=== PATIENT | female | born 1955 | race Caucasian/White ===

== ENCOUNTER 2018-09-08 05:46 | Outpatient (CLI) | payer BC ==
[~2018-09-08] VITALS: Ht 167.6 cm; Wt 90.7 kg
[2018-09-08] MEDS ORDERED: LORA10TA76 PO (16:32)
[2018-09-08] MEDS ORDERED: SIMV20TA3 PO (16:32)
== END 2018-09-08 16:41 | disposition home or self-care (01) ==
LOC: PREOP 05:46
PROVIDERS: ATTEND Obstetrics & Gynecology
DX: Z01.818 Encounter for other preprocedural examination (principal)

== ENCOUNTER 2018-10-09 08:17 | Outpatient (CLI) | payer OTHER ==
[~2018-10-09] VITALS: Ht 167.6 cm; Wt 90.7 kg
[~2018-10-09 08:17] MED LIST: LORA10TA76 PO; SIMV20TA3 PO
[2018-10-14] MEDS ORDERED: IBUP-1773 PO (02:52)
[2018-10-14] MEDS ORDERED: ACET-77 PO (02:52)
[2018-10-14] MEDS ORDERED: OXC5T PO (02:52)
[2018-10-14] MEDS ORDERED: DOCU-143 PO (08:48)
== END 2018-10-09 09:09 | disposition home or self-care (01) ==
LOC: PREOP 08:17
PROVIDERS: ATTEND Obstetrics & Gynecology
DX: Z01.818 Encounter for other preprocedural examination (principal)

== ENCOUNTER 2018-10-13 05:59 | Day surgery (SDC) | payer BC, OTHER ==
[2018-10-13] VITALS (13 sets, daily range): BP systolic 103–143; BP diastolic 63–88
[~2018-10-13] VITALS: Ht 167.6 cm; Wt 90.7 kg
[2018-10-13 06:43] LABS: BASOPHILS % (AUTO) 1 % (0-10); EOSINOPHILS # (AUTO) 0.3 10^3/uL (0.0-0.3); EOSINOPHILS % (AUTO) 4 % (0-10); HEMATOCRIT 41 % (35-52); LYMPHOCYTES # (AUTO) 2.3 X 10^3 (1.0-4.0); LYMPHOCYTES % (AUTO) 31 % (12-44); MEAN CORPUSCULAR HEMOGLOBIN 31 PG (25-34); MEAN CORPUSCULAR HGB CONC 35 G/DL (32-36); MEAN CORPUSCULAR VOLUME 91 FL (80-99); MEAN PLATELET VOLUME 10.1 FL (7.4-10.4); MONOCYTES # (AUTO) 0.7 X 10^3 (0.0-1.0); MONOCYTES % (AUTO) 9 % (0-12); NEUTROPHILS # (AUTO) 4.1 X 10^3 (1.8-7.8); NEUTROPHILS % (AUTO) 56 % (42-75); PLATELET COUNT 205 10^3/uL (130-400); RED CELL DISTRIBUTION WIDTH 13.5 % (10.0-14.5); WHITE BLOOD COUNT 7.4 10^3/uL (4.3-11.0)
--- NOTE | 2018-10-13 06:43 | History & Physical-Surgical ---
HPO-Surgical History of Present Illness Chief Complaint: Incomplete genital prolapse/ cystocele/rectocele Stress incontinenct Complains of vaginal pressues, stress incontinence with cough, sneeze and movement. Had two vaginal deliveries. hysterectomy in 1994. Due to Uterine fibroids. Dr. Page. Did a TVH. (age 37). Told her she would have a lot of scar tissue in about 30 years She had a tumor removed at age 27. Thought it was a dermoid. But ended up being next to the ovary. Was not attached to the muscle. Told her it had hair and teeth. Did that through a midline incision. I have had to reschedule her surgery twice due to personal reasons. Diagnosis/Surgical Indication: genital prolapse, cystocele, rectocele, DEBBIE Procedure: A&P repair, solyx sling Date of Surgery: October 13, 2018 Weight (Pounds): 200 Weight (Ounces): 0.0 Height (Feet): 5 Height (Inches): 6.00 Allergies and Home Medications Allergies Coded Allergies: No Known Drug Allergies (Unverified , 09/08/18) Home Medications Loratadine 10 Mg Tablet, 10 MG PO HS, (Reported) Simvastatin 20 Mg Tablet, 20 MG PO HS, (Reported) Patient Home Medication List Home Medication List Reviewed: Yes Past Cyufbgm-Ocqvbv-Ahmwym Hx Patient Social History Number of Children: 2 Number of living children: 2 Alcohol Use: Denies Use Smoking Status: Never a Smoker Recent Foreign Travel: No Contact w/other who traveled: No Recent Hopitalizations: No Seasonal Allergies Seasonal Allergies: Yes Surgeries Yes (OVARIAN CYSTECTOMY, KNEE SCOPE X2) Hysterectomy, Oophorectomy Respiratory No Cardiovascular Yes High Cholesterol Neurological No Genitourinary Yes Gastrointestinal No Musculoskeletal No Endocrine History of Endocrine Disorders: No HEENT History of HEENT Disorders: No Cancer No Psychosocial History of Psychiatric Problem: No Integumentary History of Skin or Integumenta: No Blood Transfusions History of Blood Disorders: No Family Medical History Significant Family History: No Pertinent Family Hx Family Hx: Diabetes mellitus G8 BROTHER Hypertension 19 MOTHER Myocardial infarction 19 FATHER Respiratory disorder 19 MOTHER Exam Vital Signs Capillary Refill : General Appearance: Alert Respiratory: Clear to Auscultation Cardiovascular: Regular Rate, Normal S1, Normal S2 Abdominal: Normal Bowel Sounds, Other (cystocele, rectocele, > 45 degree rotation of the urethra) Assessment/Plan Assessment and Plan 1. Incomplete genital prolapse 2. Cystocele/rectocele 3. Stress incontinence Plan - anterior posterior colporrhaphy, Solyx pubovaginal sling Discussed risks of surgery including Risks of bleeding, infection, injury to bowel, bladder and ureter, risks of anesthesia, risk of blood clots, perisurgical and postsurgical. Consents have been signed Prophylactic antibiotics and SCDs will be used. Admission Diagnosis Admission Status: Observation JOCELINE ALBA DO October 13, 2018 06:43
[2018-10-13] MEDS ORDERED: metroNIDAZOLE 500MG/100ML IVPB 100 ML IV ONE (06:45)
[2018-10-13] MEDS ORDERED: ceFAZolin INJECTION 1,000 MG in WATER (STERILE) FOR INJECTION 10 ML IV ONE (06:45)
[2018-10-13] MEDS: LACTATED RINGERS 1,000 ML IV PRN ×2 (06:56→08:23)
[2018-10-13] MEDS ORDERED: fentaNYL INJECTION 100 MCG/2 ML AMP ONE ×2 (07:09→08:51)
[2018-10-13] MEDS ORDERED: MIDAZOLAM 2 MG/2 ML (VERSED) VIAL ONE (07:10)
[2018-10-13] MEDS ORDERED: ceFAZolin INJECTION 1,000 MG ONE (07:11)
[2018-10-13] MEDS ORDERED: metroNIDAZOLE 500MG/100ML IVPB 100 ML ONE (07:11)
[2018-10-13] MEDS ORDERED: VASOPRESSIN INJECTION 20 UNIT/ML VIAL ONE (07:20)
[2018-10-13] MEDS ORDERED: NS (IVPB) 100 ML ONE (07:20)
[2018-10-13] MEDS ORDERED: ESTRADIOL VAGINAL CREAM 42.5 GM (ESTRACE) VG ONE (07:20)
[2018-10-13 07:43] LABS: BILIRUBIN,URINE NEGATIVE (NEGATIVE); CLARITY,URINE CLEAR; COLOR,URINE YELLOW; GLUCOSE, URINE (UA) NEGATIVE (NEGATIVE); KETONES,URINE NEGATIVE (NEGATIVE); LEUKOCYTE ESTERASE ,URINE NEGATIVE (NEGATIVE); NITRITE,URINE NEGATIVE (NEGATIVE); PH,URINE 6.5 (5-9); PROTEIN,URINE NEGATIVE (NEGATIVE); UROBILINOGEN,URINE NORMAL (NORMAL)
[2018-10-13 07:53] LABS: BACTERIA,URINE NEGATIVE /HPF; WBC,URINE RARE /HPF
[2018-10-13] MEDS ORDERED: DEXAMETHASONE 10 MG/ML (DECADRON) 1 ML VIAL ONE (08:33)
[2018-10-13] MEDS ORDERED: KETOROLAC 30 MG/ML VIAL ONE (08:33)
[2018-10-13] MEDS ORDERED: ONDANSETRON 4 MG/2 ML (SDV) Z0FRAN ONE (08:33)
[2018-10-13] MEDS ORDERED: proPOfol 200 MG/20 ML (DIPRIVAN) VIAL IV ONE (08:33)
[2018-10-13] MEDS ORDERED: SEVOFLURANE (ULTANE) 15 ML INHAL SOLN ONE ×3 (08:33→09:51)
[2018-10-13] MEDS ORDERED: LIDOCAINE PF 2% 5 ML (XYLOCAINE) VIAL ONE (08:34)
[2018-10-13] MEDS: KETOROLAC 30 MG/ML VIAL IVP SCH ×3 (09:00→20:25)
--- NOTE | 2018-10-13 09:38 | Operative Report ---
Operative Report Date of Procedure/Surgery October 13, 2018 Surgeon (s) JOCELINE ALBA DO Senior Bi Architect (s): NA Post-Operative Diagnosis incomplete prolapse/ cystocele/rectocele/stress incontinence Procedure Performed Anterior posterior repair, Solyx pubovaginal sling Description of Procedure Anesthesia Type: General Estimated blood loss (mL): 50 Specimen(s) collected/removed none Description of the Procedure With informed consent the patient was taken to the operating room where general anesthesia was found to be adequate. She was prepped and draped in the usual sterile fashion in the dorsolithotomy position. A Larsen catheter was placed in the bladder. A speculum was placed in the vagina and a LoneStar retractor was placed. The perineum was grasped on either side of the perineum with Wilma clamps. The posterior vagina was injected with diluted vasopressin. I then made a midline incision in the perineum and then undermined the posterior vaginal epithelium. This was complicated by scarring of the perineum from delivery lacerations and repaid. I then dissected the posterior vaginal epithelium off of the pubovaginal fascia laterally exposing the posterior defect up to the vaginal cuff. I then repaired the large posterior defect with interrupted 2-0 Vicryl mattress type sutures in two layers, reducing the defect. I then cut the excess vaginal epithelium and then closed the posterior vaginal laceration with 2-0 vicryl in a running fashion. I then made a pyramidal incision in the perineum and closed this defect in standard fashion. Now attention was turned to the anterior vaginal wall. There was a smaller anterior defect. The anterior vaginal epithelium was injected with dilute vasopressin and an Allis was clamped in the midline and then a midline incision was made. I then dissected the anterior vaginal epithelium off of the vesicovaginal fascia laterally to expose the midline defect. I then repaired this defect with interrupted mattress type sutures with 2-0 Vicryl reducing the defect. I now cut excess vaginal epithelium and closed the defect with 2-0 Vicryl. Lastly, I did the Solyx sling. She still had a urethrocele and > 50 degree of rotation with Cred. I grasp the vaginal epithelium with an Allis and then made a 1 cm incision approximately 1.5 cm from the urethral meatus. I dissected the periurethral space laterally. I then placed each arm of the the sling in standard fashion. Once proper placement was ensured and the sling was laying in the proper placement in the midurethra. The catheter was removed and then a cystoscopy was done. There was no vesicular pathology and no injury. I then filled the bladder with cystoscopy fluid and with Cred maneuver there was no leakage. The catheter was replaced and the incision was placed with 4-0 Monocryl in running fashion. The instruments and the LoneStar was removed. The catheter was replaced in the bladder. The vagina was now packed with vaginal packing and Estrace cream. The patient was awakened and take to recovery in stable condition. Sponge, lap, needle and instrument counts were correct times two. Findings of the Procedure 2-3+ rectocele, scarred perineum, 1+ high cystocele, > 45 degree rotation of the urethra, minimal leak with Cred Allergies and Home Medications Allergies Coded Allergies: No Known Drug Allergies (Unverified , 09/08/18) Home Medications Acetaminophen 500 Mg Tablet, 1,000 MG PO Q6H PRN for PAIN-MILD Prescribed by: JOCELINE ALBA on 10/14/18251 Docusate Sodium 100 Mg Capsule, 100 MG PO DAILY Prescribed by: JOCELINE ALBA on 10/14/18 0848 Ibuprofen 600 Mg Tablet, 600 MG PO Q6H PRN for PAIN-MILD Prescribed by: JOCELINE ALBA on 10/14/18 025 Loratadine 10 Mg Tablet, 10 MG PO HS, (Reported) Oxycodone Hcl 5 Mg Tab, 5 MG PO Q6H PRN for PAIN-SEVERE Prescribed by: JOCELINE ALBA on 10/14/18 025 Simvastatin 20 Mg Tablet, 20 MG PO HS, (Reported) Patient Home Medication List Home Medication List Reviewed: JOCELINE Albert DO October 13, 2018 09:37
[2018-10-13] MEDS ORDERED: ACETAMINOPHEN 500 MG TAB (TYLENOL) PO PRN (10:00)
[2018-10-13] MEDS ORDERED: morphine INJ 5 MG/ML 1 ML VIAL IV PRN (10:00)
[2018-10-13] MEDS ORDERED: ONDANSETRON 4 MG/2 ML (SDV) Z0FRAN IVP PRN (10:00)
--- NOTE | 2018-10-13 10:20 | Anesthesia-General Post-Op ---
General Patient Condition Mental Status/LOC: Same as Preop Cardiovascular: Satisfactory Nausea/Vomiting: Absent Respiratory: Satisfactory Pain: Controlled Complications: Absent Post Op Complications Complications None Follow Up Care/Instructions Patient Instructions None needed. Anesthesia/Patient Condition Patient Condition Patient is doing well, no complaints, stable vital signs, no apparent adverse anesthesia problems. No complications reported per nursing. D/C home per [facility] [place] Criteria: Yes EDWAR HEBERT CRNA October 13, 2018 10:20
--- NOTE | 2018-10-13 10:30 | NUR ---
Received pt from [facility] via bed. Received report form Kanika Sherwood RN. Pt alert and oriented. Skin warm and dry. Color pale pink. at bedside. O2 mask on at 3l/m for sats of 90% when on room air as reported via Kanika Ortega RN. Breath sounds clear and equal bilat. Larsen to dependent drainage. Clear pink urine. Larsen secure to lt thigh. SCD's on bilat. Bed rails up x2. Call light within reach. No s/s of distress. no concerns expressed via pt.
[2018-10-13] MEDS: D5 LR IV SOLUTION 1,000 ML IV SCH ×2 (11:15→18:31)
[2018-10-13] MEDS ORDERED: morphine INJ 10 MG/ML 1ML (SYR OR VIAL) IV PRN (11:45)
--- NOTE | 2018-10-13 13:45 | NUR ---
Pt alert and oriented. Color pink. Resp unlabored. Oxygen mask dcd per patient.
--- NOTE | 2018-10-13 14:20 | NUR ---
Checked o2 sat on room air. 98%. No concerns voiced by pt. No s/s distressed.
[2018-10-14 00:40] VITALS: BP 102/63
[2018-10-14] MEDS: D5 LR IV SOLUTION 1,000 ML IV SCH (02:28)
[2018-10-14] MEDS ORDERED: OXC5T PO (02:52)
[2018-10-14] MEDS ORDERED: IBUP-1773 PO (02:52)
[2018-10-14] MEDS ORDERED: ACET-77 PO (02:52)
--- NOTE | 2018-10-14 02:53 | Discharge Inst-Women's Service ---
Discharge Inst-Women's Serv Depart Medication/Instructions New, Converted or Re-Newed RX: Other Final Diagnosis incomplete vaginal prolapse rectocele stress incontinence Consults/Follow Up Additional Follow Up: Yes (1-2 week and 6 weeks with Artie) Activity Activity: Activity as Tolerated Driving Instructions: No Driving for 1 Week NO SMOKING: NO SMOKING Nothing Inside Vagina: No Douching, No [place], No Tampons Diet Discharge Diet: No Restrictions Symptoms to Report to : Bleeding Excessive, Pain Increased, Constipation(Persistant), Fever Over 101 Degrees F, Urination Difficulty, Vaginal Bleeding Increase, Cramps in Feet or Legs, Vaginal Discharge Foul For Any Problems or Questions: Contact Your Physician JOCELINE ALBA DO October 14, 2018 02:53
[2018-10-14] MEDS ORDERED: BENZOCAINE/MENTHOL (DERMOPLAST) 56 ML CAN TP PRN (03:00)
[2018-10-14 03:33] VITALS: BP 100/63
[2018-10-14] MEDS: KETOROLAC 30 MG/ML VIAL IVP SCH (03:33)
--- NOTE | 2018-10-14 08:30 | NUR ---
Dr. Alva here to see pt. D/C orders rec'd.
[2018-10-14] MEDS ORDERED: DOCU-143 PO (08:48)
[2018-10-14] MEDS ORDERED: DOCUSATE SODIUM 100 MG (COLACE) CAP PO SCH (09:00)
[2018-10-14 09:03] VITALS: BP 126/64
--- NOTE | 2018-10-14 09:55 | NUR ---
discharge instructions explained to pt with copy provided to pt along with narcotic script and Estrace cream. pt notified of follow up appt and other scripts electronically submitted to [facility]. Pt verbalizes understanding of teaching, denies questions or concerns at this time. Extra pads, underwear, bath wipes provided per pt request.
--- NOTE | 2018-10-14 10:05 | NUR ---
Pt taken off unit via wheelchair accompanied by S.O. and RN to private vehicle, no s/s of distress noted.
== END 2018-10-14 10:05 | disposition home or self-care (01) ==
LOC: SDC 05:59 → WS 10:30 → SDC 10-14 10:05
PROVIDERS: ATTEND Obstetrics & Gynecology
DX: N81.2 Incomplete uterovaginal prolapse (principal); N39.3 Stress incontinence (female) (male); E78.00 Pure hypercholesterolemia, unspecified; Z79.899 Other long term (current) drug therapy
CPT/HCPCS: 36415; 81000; 85025; 86850; 86900; 86901; 87081; 94664

== ENCOUNTER → 2018-10-22 | Outpatient (CLI) | payer OTHER ==
[~2018-10-22] MED LIST changes: +ACET-77 PO; +DOCU-143 PO; +IBUP-1773 PO; +OXC5T PO
--- NOTE | 2018-10-22 16:14 | Diagnostic Imaging Report ---
PROCEDURE: US Venous Lower Ext Vladimir. TECHNIQUE: Multiple real-time grayscale images were obtained over the lower extremities in various projections, bilaterally. Additional duplex Doppler and color Doppler images were also obtained. INDICATION: Painful varicose veins of lower extremities The veins have good color filling and compressibility. There is normal phasic and augmented flow. Impression: Negative venous Doppler of the lower extremities Dictated by: Dictated on workstation # [id number]
== END ==
LOC: RAD 15:34
PROVIDERS: ATTEND Obstetrics & Gynecology
DX: I83.813 Varicose veins of bilateral lower extremities with pain (principal)
CPT/HCPCS: 93970

== ENCOUNTER → 2019-08-20 | Outpatient (CLI) | payer BC, OTHER ==
[~2019-08-20] MED LIST changes: -ACET-77 PO; +ACET-78 PO; +SIMV20TA26 PO; -SIMV20TA3 PO
--- NOTE | 2019-08-20 10:48 | Diagnostic Imaging Report ---
PROCEDURE: CT abdomen and pelvis without contrast. TECHNIQUE: Multiple contiguous axial images were obtained through the abdomen and pelvis without the use of intravenous contrast. Auto Exposure Controls were utilized during the CT exam to meet ALARA standards for radiation dose reduction. INDICATION: Hematuria and bladder pressure. COMPARISON: None available. FINDINGS: Absence of intravenous contrast decreases sensitivity for detection of focal lesions and vascular pathology. LOWER THORAX: Lung bases are clear. Visualized heart is normal in size. LIVER: Normal. GALLBLADDER: Normal CT appearance. BILE DUCTS: No biliary ductal dilatation. SPLEEN: Normal. PANCREAS: Mildly atrophic, otherwise unremarkable. No pancreatic ductal dilatation. ADRENAL GLANDS: No nodules. KIDNEYS AND URETERS: No hydronephrosis. No nephroureterolithiasis. No abnormality in the visualized ureters. STOMACH AND BOWEL: Stomach is physiologically-distended. No bowel obstruction. No inflammatory changes. APPENDIX: Not visualized. No pericecal inflammation. PELVIC ORGANS/BLADDER: Bladder is collapsed and not well-evaluated. Linear high density is demonstrated in the right posterior bladder near the ureterovesical junction. Uterus is absent. No pelvic mass. PERITONEUM AND RETROPERITONEUM: No pneumoperitoneum. No abdominal free fluid or loculated collection. LYMPH NODES: Mildly prominent lymph nodes in the central small bowel mesentery and hazy fat stranding of the mesenteric root. VESSELS: Abdominal aorta is nonaneurysmal. ABDOMINAL WALL: Unremarkable. BONES: Mild degenerative changes involve the spine. No acute osseous abnormality. IMPRESSION: There is no evidence of hydronephrosis or nephroureterolithiasis. The bladder is collapsed and not well evaluated. There is linear hyperdense material in the bladder near the left ureterovesical junction. This does not have the appearance of a bladder calculus and given patient's history of hematuria, is of indeterminate etiology or clinical significance. Further evaluation with contrast-enhanced CT (CT urogram) and/or urology consult should be considered. 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 Dictated by: Dictated on workstation # [id number]
== END ==
LOC: RAD 09:19
PROVIDERS: ATTEND Urology
DX: N32.89 Other specified disorders of bladder (principal); R31.9 Hematuria, unspecified; Z87.440 Personal history of urinary (tract) infections
CPT/HCPCS: 74176

== ENCOUNTER 2019-09-15 06:03 | Outpatient (RCR) | payer BC ==
[~2019-09-15] VITALS: Ht 167.7 cm; Wt 90.9 kg
== END 2019-09-15 12:10 | disposition home or self-care (01) ==
LOC: PREOP 06:03 → EDSTATUS 10:30 → PREOP 12:10
PROVIDERS: ATTEND Urology
DX: Z01.818 Encounter for other preprocedural examination (principal)

== ENCOUNTER 2019-09-17 06:29 | Day surgery (SDC) | payer BC ==
[~2019-09-17] VITALS: Ht 167.7 cm; Wt 90.9 kg
[2019-09-17] VITALS (10 sets, daily range): BP systolic 97–141; BP diastolic 52–103
--- OUTSIDE RECORDS SUMMARY | 2019-09-17 06:34 | XMS REPORT ---
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 Name Role Phone HEREDIA, TEJAS-ANAYA Unavailable Unavailable HEREDIA, TEJAS-ANAYA Unavailable Unavailable HEREDIA, TEJAS-ANAYA Unavailable Unavailable JOCELINE ALBA PCP MADISON JACOB Unavailable Unavailable JOCELINE ALBA DO Unavailable Unavailable JW, AMANDA Unavailable Unavailable JW, AMANDA Unavailable Unavailable JW, AMANDA Unavailable Unavailable VASQUES, JAMIE Unavailable Unavailable VASQUES, JAMIE Unavailable Unavailable VASQUES, JAMIE Unavailable Unavailable KINSYE, JI Unavailable Unavailable KINSEY, JI Unavailable Unavailable KINSEY, JI Unavailable Unavailable MACEY WARD MD Unavailable Unavailable Allergies Normalized Allergy Reported Date of Reaction(s) Care Provider Facility Allergy Type classification allergen Allergy Onset DA (14 Unclassified No Known Drug 09-08-2018 - no information MADISON JACOB Not Available sources.) Allergies (78992) no information Unclassified NO KNOWN DRUG NO KNOWN DRUG [facility] (16 sources.) ALLERGIES ALLERGIES, [facility] of UNKNOWN [facility] (73675) Medications Medication Ingredient Drug Dose Dates Status Sig Sig Care Class(es) (Normalized) (Original) Provid er loratadine Loratadine no 10 mg Complete take 1 Loratadine ( no 10 mg oral information d tablet by (Claritin) phone) tablet (2 mouth at 10 Mg Tablet sources.) bedtime 10 Mg ORAL Bedtime simvastatin Simvastatin HMG-CoA 20 mg Complete take 1 Simvastati n (no 20 mg oral Reductase d tablet by 20 Mg Tablet phone) tablet (2 Inhibitor mouth at 20 Mg ORAL sources.) bedtime Bedtime Problems Active Problems Problem Normalized Date of Normalized Normalized Provider Fac ility Classification Problem(s) Problem Problem Problem Sta tus Onset/Resoluti Duration on Other upper Acute Episodic Active [facility] Hospita l respiratory sinusitis, [facility] of infections (6 unspecified [place] sources.) Translations: [facility] ([id number]) [ ACUTE SINUSITIS, UNSPECIFIED] Prolapse of Cystocele 08-18-2019 - Chronic Active JOCELINE ALBA [place] [facility] female genital Translations: [address] [place] organs (11 [ INCOMPLETE Hospital sources.) UTEROVAGINAL (64486) PROLAPSE] Other Encounter for 08-18-2019 - Episodic Active MADISON QUICK Not Available screening for screening (58850) suspected mammogram for conditions malignant (not mental neoplasm of disorders or breast infectious Translations: disease) (14 [ OTHER sources.) SCREENING MAMMOGRAM, OTHER SCREENING MAMMOGRAM] Acquired foot Flat foot Episodic Active TEJAS-ANAYA HEREDIA Hosp ital deformities (1 [facility] of source.) [facility] (44440) Genitourinary Hematuria, 08-24-2019 - Episodic Active DANIEL HARVEY Via symptoms and unspecified MD [place] ill-defined Translations: Hospital - conditions (2 [ PERSONAL [place] sources.) HISTORY OF (41654) URINARY (TRACT) INFE] Other upper Hypertrophy of Episodic Active [facility] ospital respiratory nasal [facility] of disease (1 turbinates [place] source.) [facility] (43815) Other upper Hypertrophy of Episodic Active [facility] ospital respiratory nasal [facility] of disease (1 turbinates [place] source.) [facility] (98358) 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, [facility] (32290) conditions (2 unspecified sources.) Allergic Infantile Episodic Active [facility] Hospital reactions (6 (acute) [facility] of sources.) (chronic) [place] eczema [facility] (75727) Translations: [ DERMATITIS, UNSPECIFIED, CONTACT DERMATITIS AND OTHER ECZEMA, UNSPECIFIED CAUSE, UNSPECIFIED CONTACT DERMATITIS, UNSPECIFIED CAUSE] Spondylosis; Low back pain no information Active [facility] intervertebral Translations: [facility] of disc [ OTHER [place] disorders; SPONDYLOSIS [facility] (71057) other back WITH problems (8 RADICULOPATHY, sources.) LUMBOSACRAL REGION, LUMBAGO, LUMBOSACRAL SPONDYLOSIS WITHOUT MYELOPATHY] Spondylosis; Low back pain Episodic Active AMANDA JW ospital intervertebral Translations: [facility] of disc [ LUMBAGO WITH [place] disorders; SCIATICA, LEFT [facility] (41563) other back SIDE, LUMBAGO, problems (4 SCIATICA] sources.) Other upper Nasal Episodic Active AMANDA JW Hospita l respiratory congestion [facility] of disease (2 [place] sources.) [facility] (50301) Other ear and Otalgia, Episodic Active AMANDA JW Hospi anthony sense organ bilateral [facility] of disorders (2 [place] sources.) [facility] (89167) Other ear and Otalgia, Episodic Active AMANDA JW Hospi anthony sense organ unspecified [facility] of disorders (2 [place] sources.) [facility] (93779) Other upper Other disease Episodic Active AMANDA JW Ho spital respiratory of nasal [facility] of disease (2 cavity and [place] sources.) sinuses [facility] (23840) Other Other Chronic Active [facility] 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 [place] nervous system autonomic [facility] (48957) conditions (2 neuropathy sources.) Other Other long 08-18-2019 - Episodic Active JOCELINE ALBA [facility] aftercare (7 term (current) DO [place] sources.) drug therapy Hospital [facility] (69700) Other diseases Other 08-24-2019 - Chronic Active MACEY KUNZ , [facility] Via of bladder and specified MD [place] urethra (1 disorders of Hospital - source.) bladder [place] ([address]) Disorders of Pure 08-18-2019 - Chronic Active JOCELINE ALBA , [facility] Via lipid hypercholester DO [place] metabolism (3 olemia, Hospital - sources.) unspecified [place] ([address]) Genitourinary Stress 08-18-2019 - Chronic Active JOCELINE Milton , [facility] Via symptoms and incontinence DO [place] ill-defined (female) Hospital - conditions (3 (male) [place] sources.) (27014) Urinary tract Urinary tract Episodic Active [facility] infections (4 infection, [facility] of sources.) site not [place] specified [facility] (98518) Translations: [ URINARY TRACT INFECTION, SITE NOT SPECIFIED] Varicose veins Varicose veins 08-18-2019 - Episodic Active [facility] of lower of bilateral [facility] of extremity (7 lower [place] sources.) extremities [facility] (02647) with pain Translations: [ VARICOSE VEINS OF THE LOWER EXTREMITIES, WITH OTHER COMPLICATIONS] Unclassified no information no information Active JOCELINE Milton [place] Via (4 sources.) [address] [facility] (57810) Past or Other Problems Problem Normalized Date of Normalized Normalized Provider Fac ility Classification Problem(s) Problem Problem Problem Sta tus Onset/Resoluti Duration on Unclassified Acute no information no information AMANDA [facility] (2 sources.) sinusitis [facility] of [facility] (58750) Unclassified Acute no information no information [facility] (1 source.) sinusitis, [facility] of unspecified [facility] (32687) Unclassified Flat foot [pes no information no information [facility] (1 source.) planus] [facility] of (acquired) [facility] (56734) Disorders of Pure no information no information JOCELINE ALBA [facility] Via lipid hypercholester DO [facility] metabolism (4 olemia, Hospital - sources.) unspecified [place] ([address]82) Genitourinary Stress no information no information JOCELINE Milton [facility] symptoms and incontinence DO [facility] ill-defined (female) Hospital - conditions (4 (male) [place] sources.) (99016) Procedures The data below is from unstructured sourcesNo procedure information available.No procedure information available.No procedure information available. Immunizations Normalized Immunization Date Notes Care Provider Facili ty Immunization vaccine no information JOCELINE ALBA [address] [place] [facility] Translations: [ [facility] vaccine] (70411) Results Test Name Value Interpretation Reference Range Date Time Fa cility (Normalized) (Normalized) (Medline Reference) No panel information on 2019-07-30 CULTURE SOURCE voided urine (no code) 07-30-2019 Hospital 07:00-0400 [facility] (05992) FINAL CULTURE 10,000-20,000 (no code) 07-30-2019 Hospital RESULTS Dipthroids NO 07:000400 [facility] of Pathogens [facility] Isolated No (97804) Further Workup done PRELIM CULTURE No Growth 24 (no code) 07-30-2019 Hospital RESULTS hours 07:00-0400 [facility] of [facility] (21696) No panel information on 2019-07-19 CULTURE SOURCE clean (no code) 07-19-2019 Hospital 05:00-0500 [facility] of [facility] (69374) FINAL CULTURE 50,000-100,000 (no code) 07-19-2019 Hospital RESULTS Gram Positive 05:00 [facility] of Mixed Jw [facility] Probable Skin (52026) Contaminant No Further Workup done PRELIM CULTURE 20,000-50,000 (no code) 07-19-2019 Hospital RESULTS Gram Positive 05:00 [facility] of Mixed Jw [facility] Probable Skin (68739) Contaminant No panel information on 2019-04-29 Albumin BCG dye 4.3 (no code) 04-29-2019 Hospital [Mass/Vol] 03:43050 [facility] of [facility] (07739) ALP [Catalytic 113 U/L (no code) 44 - 147 U/L 04-29-2019 Hosp ital activity/Vol] 03: [facility] of [facility] (73181) ALT [Catalytic 14 U/L (no code) 4 - 40 U/L 04-29-2019 Hospit al activity/Vol] 03: [facility] of [facility] (18540) Anion gap 13 mmol/L (no code) 3 - 11 mmol/L 04-29-2019 Hospital [Moles/Vol] 03:43050 [facility] of [facility] (06924) AST [Catalytic 18 U/L (no code) 10 - 34 U/L 04-29-2019 Hospi anthony activity/Vol] 03:43050 [facility] of [facility] (22290) Bilirubin 0.7 mg/dL (no code) 0.1 - 1.2 mg/dL 04-29-2019 Hospit al [Mass/Vol] 03:43050 [facility] of [facility] (36040) Calcium 9.0 mg/dL (no code) 8.5 - 10.2 mg/dL 04-29-2019 Hospi anthony [Mass/Vol] 03:43050 [facility] of [facility] (98955) Chloride 109 mmol/L (no code) 95 - 106 mmol/L 04-29-2019 Hospi anthony [Moles/Vol] 03:43050 [facility] of [facility] (61530) Cholesterol 161 mg/dL (no code) 180 - 200 mg/dL 04-29-2019 Hosp ital [Mass/Vol] 03:430500 [facility] of [facility] (69206) Cholesterol in 44 mg/dL (no code) 04-29-2019 Hospital HDL [Mass/Vol] 03: [facility] of [facility] (09378) Cholesterol in 78 mg/dL (no code) 0 - 100 mg/dL 04-29-2019 Hos pital LDL [Mass/Vol] 03: [facility] of [facility] (54478) Cholesterol in 39 mg/dL (no code) 04-29-2019 Hospital VLDL [Mass/Vol] 03:43050 [facility] of [facility] (58508) Cholesterol.tota 3.7 {ratio} (no code) 04-29-2019 Hospital l/Cholesterol in 03: [facility] of HDL [Mass ratio] [facility] (50442) Creatinine 0.89 mg/dL (no code) 04-29-2019 Hospital [Mass/Vol] 03: [facility] of [facility] () GFR/1.73 sq 64 (no code) 90 - 120 04-29-2019 Hospital M.predicted MDRD mL/min/{1.73_m2} mL/min/{1.73_m2} 03: [facility] of (S/P/Bld) [Vol [facility] rate/Area] (06987) Globulin (S) 2.5 g/dL (no code) 2 - 3.5 g/dL 04-29-2019 Hospit al [Mass/Vol] 03: [facility] of [facility] () Glucose 86 mg/dL (no code) 60 - 125 mg/dL 04-29-2019 Hospita l [Mass/Vol] 03: [facility] of [facility] (15769) HCO3 (P) 25 (no code) 04-29-2019 Hospital [Moles/Vol] 03: [facility] (00410) Osmolality Calc 294 (no code) 04-29-2019 Hospital [Osmolality] 03: [facility] of [facility] (98260) Potassium 4.0 mmol/L (no code) 3.7 - 5.2 mmol/L 04-29-2019 Hosp ital [Moles/Vol] 03:43 [facility] of [facility] (91481) Protein 6.8 g/dL (no code) 6.4 - 8.3 g/dL 04-29-2019 Hospita l [Mass/Vol] 03:43 [facility] of [facility] (97499) Sodium 143 mmol/L (no code) 135 - 145 mmol/L 04-29-2019 Hosp ital [Moles/Vol] 03: [facility] of [facility] (03661) Triglyceride 195 mg/dL (H) 0 - 150 mg/dL 04-29-2019 Hospi anthony [Mass/Vol] 03: [facility] of [facility] (74392) Urea nitrogen 11 mg/dL (no code) 7 - 20 mg/dL 04-29-2019 Hospi anthony [Mass/Vol] 03: [facility] of [facility] (67309) No panel information on 2018-04-29 Bacteria LM Ql no information (no code) 04-29-2018 Hospital (Urine sed) 12: [facility] (60589) Bilirubin N/A (A) 04-29-2018 Hospital Confirm Ql (U) 12: [facility] (28509) Bilirubin Ql (U) no information (no code) 04-29-2018 Hospit al 12: [facility] of [facility] (16890) Clarity (U) Clear (no code) 04-29-2018 Hospital 12:0500 [facility] of [facility] (47877) Color (U) Yellow (no code) 04-29-2018 Hospital 12:150500 [facility] of [facility] (09062) Epithelial 5-10/HPF (A) 04-29-2018 Hospital cells.squamous 12: [facility] of LM.HPF (Urine [facility] sed) [#/Area] (42979) Glucose Test no information (no code) 04-29-2018 Hospital strip (U) 12: [facility] of [Mass/Vol] [facility] (08659) Hemoglobin Ql no information (no code) 04-29-2018 Hospital (U) 12: [facility] (01977) Ketones (U) no information (no code) 04-29-2018 Hospital [Mass/Vol] 12:150500 [facility] of [facility] (16411) Leukocyte no information (no code) 04-29-2018 Hospital esterase Test 12: [facility] of strip Ql (U) [facility] (41168) Mucus Ql (Urine 1+ (A) 04-29-2018 Hospital sed) 12:150 [facility] of [facility] (41408) Nitrite Ql (U) no information (no code) 04-29-2018 Hospital 12:150500 [facility] (77466) pH (U) 6.0 [pH] (no code) 4.6 - 8 [pH] 04-29-2018 Hospital 12:150500 [facility] (56616) Protein (U) no information (no code) 0 - 20 mg/dL 04-29-2018 Ho spital [Mass/Vol] 12:150 [facility] of [facility] (98756) RBC LM.HPF no information (no code) 0 - 4 /[HPF] 04-29-2018 Hos pital (Urine sed) 12:0 [facility] of [#/Area] [facility] (80568) Specific gravity <=1.005 (A) 04-29-2018 Hospital (U) [Rel 12:15 [facility] of density] [facility] (12094) Urine Volume Urine Volume (no code) 04-29-2018 Hospital Sufficient 12:0 [facility] of (10mL) [facility] (06496) Urobilinogen Qn 0.2 (A) 04-29-2018 Hospital (U) {Leo'U}/dL 12:0 [facility] o f [facility] (02169) WBC LM.HPF Nothing Seen on (no code) 04-29-2018 Hospital (Urine sed) Microscopic 12:150500 [facility] of [#/Area] [facility] (55028) Yeast.budding Ql No Yeast present (no code) 04-29-2018 Hosp ital (Urine sed) 12:0 [facility] of [facility] (85019) no information Urine Saved if (A) 04-29-2018 Hospital Culture Needed : [facility] of (48hrs from time [facility] of collection) (86833) No panel information on 2016-08-31 Albumin 4.2 (no code) 08-31-2016 Not Available Bromocresol 11:0 (28541) green (BCG) dye binding method mass conc ALP enzyme 108 U/L (no code) 44 - 147 U/L 08-31-2016 Not Avai lable act/vol 11: (79800) ALT enzyme 21 U/L (no code) 4 - 40 U/L 08-31-2016 Not Availa ble act/vol 11: (34686) Anion gap 4 14 (no code) 08-31-2016 Not Available molar conc 11:0400 (95415) AST enzyme 23 U/L (no code) 10 - 34 U/L 08-31-2016 Not Avail able act/vol 11:0 (14608) Bilirubin mass 0.9 mg/dL (no code) 0.1 - 1.2 mg/dL 08-31-2016 N ot Available conc 11:0 (60241) Calcium mass 9.1 mg/dL (no code) 8.5 - 10.2 mg/dL 08-31-2016 No t Available conc 11:0400 (84043) Chloride molar 109 mmol/L (no code) 95 - 106 mmol/L 08-31-2016 Not Available conc 11:0 (53584) Cholesterol in 49 mg/dL (no code) 08-31-2016 Not Availab le HDL mass conc 11:0400 (21706) Cholesterol in 65 mg/dL (no code) 0 - 100 mg/dL 08-31-2016 Not Available LDL mass conc 11:0 (12706) Cholesterol in 30 mg/dL (no code) 08-31-2016 Not Availab le VLDL mass conc 11:0400 (28580) Cholesterol mass 144 mg/dL (no code) 180 - 200 mg/dL 08-31-2016 Not Available conc 11:0400 (39902) Cholesterol.tota 2.9 {ratio} (L) 08-31-2016 Not Avail able l/Cholesterol in 11: (78867) HDL mass ratio Creatinine mass 0.87 mg/dL (no code) 08-31-2016 Not Availa ble conc 11: (92109) GFR/1.73 sq 67 (no code) 90 - 120 08-31-2016 Not Availa ble M.predicted MDRD mL/min/{1.73_m2} mL/min/{1.73_m2} 11: (13512) vol rate/area Globulin 2.8 g/dL (no code) 2 - 3.5 g/dL 08-31-2016 Not Avail able Calculated mass : (86334) conc (S) Glucose mass 93 mg/dL (no code) 60 - 125 mg/dL 08-31-2016 Not Available conc : (23658) HCO3 molar conc 25 (no code) 08-31-2016 Not Availa ble (P) 11: (71370) Osmolality 296 (H) 08-31-2016 Not Available Calculated : (16231) Potassium molar 4.0 mmol/L (no code) 3.7 - 5.2 mmol/L 08-31-2016 Not Available conc 11: (18544) Protein mass 7.0 g/dL (no code) 6.4 - 8.3 g/dL 08-31-2016 Not Available conc : (01418) Sodium molar 144 mmol/L (no code) 135 - 145 mmol/L 08-31-2016 N ot Available conc : (67081) Triglyceride 149 mg/dL (no code) 0 - 150 mg/dL 08-31-2016 Not A vailable mass conc : (36919) Urea nitrogen 9 mg/dL (no code) 7 - 20 mg/dL 08-31-2016 Not A vailable mass conc : (47435) Vital Signs The data below is from unstructured sources Vital Response Date/Time Height (Feet) 5 feet 4:04pm Height (Inches) 6.00 inches 09/08/2018 4:04pm Height (Calculated Centimeters) 167. 425609 cm 09/08/2018 4:04pm Weight (Pounds) 200 pounds 09/08/2018 4:04pm Weight (Ounces) 0.0 oz 0 09/08/2018 4:04pm Weight (Calculated Grams) 85530.48 gm 09/08/2018 4:04pm Weight (Calculated Kilograms) 90.718 475 kilograms 09/08/2018 4:04pm Calculated BMI 32.3 08/18 4:04pm Vital Response Date/Time Height (Feet) 5 feet 8:14am Height (Inches) 6.00 inches 10/09/2018 8:14am Height (Calculated Centimeters) 167. 088026 cm 10/09/2018 8:14am Weight (Pounds) 200 pounds 10/09/2018 8:14am Weight (Ounces) 0.0 oz 0 10/09/2018 8:14am Weight (Calculated Grams) 88191.48 gm 10/09/2018 8:14am Weight (Calculated Kilograms) 90.718 475 kilograms 10/09/2018 8:14am Calculated BMI 32.3 09/17 8:14am Vital Response Date/Time Height (Feet) 5 feet 8:14am Height (Inches) 6.00 inches 10/09/2018 8:14am Height (Calculated Centimeters) 167. 623777 cm 10/09/2018 8:14am Weight (Pounds) 200 pounds 10/09/2018 8:14am Weight (Ounces) 0.0 oz 0 10/09/2018 8:14am Weight (Calculated Grams) 18786.48 gm 10/09/2018 8:14am Weight (Calculated Kilograms) 90.718 475 kilograms 10/09/2018 8:14am Calculated BMI 32.3 09/17 8:14am Interventions No Information Plan of Treatment The data below is from unstructured sources Discharge Date 09/08/18 4:41pm Prescriptions See Medication Section Discharge Date 10/09/18 9:09am Prescriptions See Medication Section Discharge Date 10/09/18 9:09am Prescriptions See Medication Section Goals No Information Social History Normalized Code Original Code Date Value no information no information no information Unknown if ever smoked Functional Status The data below is from unstructured sourcesNo functional status information available.No functional status information available.No functional status information available. Mental Status No Information Encounters Encounter Normalized Encounter Encounter Diagnosis Care Provi chelly Organization Date Type 08-20-2019 Patient encounter no information MACEY WARD MD ( no [facility] procedure phone) [facility] (no phone) 07-30-2019 Patient encounter no information JI KINSEY (no [facility] procedure phone) of [facility] nt (no 07-30-2019 phone) 07-30-2019 Patient encounter no information JI KINSEY (no [facility] - procedure phone) of [facility] nt (no 07-30-2019 phone) 07-19-2019 Patient encounter no information JAMIE VASQUES (no [facility] - procedure phone) of [facility] (no 07-19-2019 phone) 07-19-2019 Patient encounter no information JAMIE VASQUES (no Hospital [facility] - procedure phone) of [facility] (no 07-19-2019 phone) 04-29-2019 Patient encounter no information no name (no phone) no organization name - procedure (no phone) 04-29-2019 10-22-2018 Patient encounter no information no name (no phone) no organization name procedure (no phone) 10-22-2018 Patient encounter no information JOCELINE ALBA DO ( no [facility] [place] procedure phone) [facility] (no phone) 10-13-2018 Patient encounter no information no name (no phone) no organization name - procedure (no phone) 10-14-2018 10-13-2018 Patient encounter no information JOCELINE ALBA DO ( no [facility] [place] - procedure phone) [facility] 10-14-2018 (no phone) 10-09-2018 Patient encounter no information JOCELINE ALBA Work no organization name - procedure (no phone ) 10-09-2018 10-09-2018 Patient encounter no information JOCELINE ALBA DO ( no [facility] [place] - procedure phone) [facility] 10-09-2018 (no phone) 10-08-2018 Patient encounter no information no name (no phone) no organization name procedure (no phone) 09-08-2018 Patient encounter no information JOCELINE ALBA Work no organization name - procedure (no phone ) 09-08-2018 09-08-2018 Patient encounter no information JOCELINE ALBA DO ( no [facility] [place] - procedure phone) [facility] 09-08-2018 (no phone) 08-10-2018 Patient encounter no information no name (no phone) no organization name - procedure (no phone) 08-11-2018 07-24-2018 Patient encounter no information no name (no phone) no organization name - procedure (no phone) 07-25-2018 06-17-2018 Patient encounter no information no name (no phone) no organization name - procedure (no phone) 06-18-2018 05-07-2018 Patient encounter no information no name (no phone) no organization name - procedure (no phone) 05-08-2018 04-29-2018 Patient encounter no information no name (no phone) no organization name - procedure (no phone) 04-30-2018 04-29-2018 Patient encounter no information no name (no phone) no organization name - procedure (no phone) 04-30-2018 01-13-2018 Patient encounter no information no name (no phone) no organization name - procedure (no phone) 01-14-2018 01-01-2018 Patient encounter no information no name (no phone) no organization name - procedure (no phone) 01-02-2018 12-29-2017 Patient encounter no information no name (no phone) no organization name - procedure (no phone) 12-30-2017 05-15-2017 Patient encounter no information no name (no phone) no organization name - procedure (no phone) 05-16-2017 04-25-2017 Patient encounter no information no name (no phone) no organization name - procedure (no phone) 04-26-2017 08-31-2016 Patient encounter no information no name (no phone) no organization name - procedure (no phone) 09-01-2016 04-06-2014 Patient encounter no information no name (no phone) no organization name procedure (no phone) 04-06-2014 Patient encounter no information MADISON GALANP ( no [facility] [place] procedure phone) [facility] (no phone) 03-31-2013 Patient encounter no information no name (no phone) no organization name procedure (no phone) 08-18-2019 no information Encounter for other no name (no phon e) no organization name preprocedural (no phone) examination no information Encounter for other no name (no phone) no org anization name preprocedural (no phone) examination Medical Equipment No Information Payers Normalized Payer Value [facility] no information [facility] [id number]) Private Health Insurance [id number]) Private Health Insurance no information Advance Directives Directive Response Recor ded Date/Time Advance Directives No 4:04pm Resuscitation Status Full Code 09/08/18 4:04pm Directive Response Recor ded Date/Time Advance Directives No 9:04am Resuscitation Status Full Code 10/09/18 9:04am Discharge Instructions No hospital discharge instruction information available.No hospital discharge instruction information available. Additional Source Comments This clinical document has been generated using [employer] software that has been certified by the Office of the National Coordinator for Health Information Technology (ONC 15.99.04.3023.Diam.31.00.0.798889) and the National Committee for Ostomy Nurse (NCQA, as an eMeasure certified technology). FOR RECORDS PERTAINING TO PATIENTS WHO ARE OR HAVE BEEN ENROLLED IN A CHEMICAL D EPENDENCY/SUBSTANCE ABUSE PROGRAM, SOME INFORMATION MAY BE OMITTED. This clinica l summary was aggregated from multiple sources. Caution should be exercised in using it in the provision of clinical care. This summary normalizes information from multiple sources, and as a consequence, information in this document may ma terially change the coding, format and clinical context of patient data. In jeanne tion, data may be omitted in some cases. CLINICAL DECISIONS SHOULD BE BASED ON T HE PRIMARY CLINICAL RECORDS. [employer] provides no warranty or guara ntee of the accuracy or completeness of information in this document.The followi ng information is based on time limited clinical information
--- OUTSIDE RECORDS SUMMARY | 2019-09-17 06:34 | XMS REPORT | Continuity of Care Document ---
Author Organization Unknown Address Unknown Phone Unavailable Allergies Active Description Code Type Severity Reaction Onset Reported/Identified Relationship to Patient Clinical Status Yes No Known Drug Allergies [id number] Drug Allergy Unknown N/A 09/08/2018 Medications There is no data. Problems Date Dx Coded Attending Type Code Diagnosis Diagnosed By 09/08/2018 JOCELINE ALBA DO C Ot Z01.8 18 ENCOUNTER FOR OTHER PREPROCEDURAL EXAMIN 09/09/2018 MADISON JACOBP Ot V76.1 2 OTH SCREEN MAMMO-MALIGN NEOPLASM OF [place] 09/09/2018 MADISON JACOB Ot V76.1 2 OTH SCREEN MAMMO-MALIGN NEOPLASM OF [place] 10/09/2018 PARTH HERNANDEZ JOCELINE C Ot Z01.8 18 ENCOUNTER FOR OTHER PREPROCEDURAL EXAMIN 10/13/2018 MADISON JACOB Ot V76.1 2 OTH SCREEN MAMMO-MALIGN NEOPLASM OF [place] 10/14/2018 PARTH DO JOCELINE C Ot E78.0 0 PURE HYPERCHOLESTEROLEMIA, UNSPECIFIED 10/14/2018 PARTH HERNANDEZ JOCELINE C Ot N39.3 STRESS INCONTINENCE (FEMALE) (MALE) 10/14/2018 PARTH HERNANDEZ JOCELINE C Ot N81.2 INCOMPLETE UTEROVAGINAL PROLAPSE 10/14/2018 PARTH HERNANDEZ JOCELINE C Ot 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.8 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 10/15/2018 PARTH HERNANDEZ JOCELINE C Ot Z01.8 18 ENCOUNTER FOR OTHER PREPROCEDURAL EXAMIN 11/01/2018 REGINE ALBA DOA C Ot 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 11/11/2018 PARTH HERNANDEZ JOCELINE C Ot E78.0 0 PURE HYPERCHOLESTEROLEMIA, UNSPECIFIED 11/11/2018 PARTH HERNANDEZ JOCELINE C Ot N39.3 STRESS INCONTINENCE (FEMALE) (MALE) 11/11/2018 PARTH HERNANDEZ JOCELINE C Ot N81.2 INCOMPLETE UTEROVAGINAL PROLAPSE 11/11/2018 JOCELINE ALBA DO Ot Z79.8 99 OTHER SNF (CURRENT) DRUG THERAPY 11/12/2018 JOCELINE ALBA DO Ot 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 11/13/2018 JOCELINE ALBA DO Ot E78.0 0 PURE HYPERCHOLESTEROLEMIA, UNSPECIFIED 11/13/2018 JOCELINE ALBA DO Ot N39.3 STRESS INCONTINENCE (FEMALE) (MALE) 11/13/2018 JOCELINE ALBA DO Ot N81.2 INCOMPLETE UTEROVAGINAL PROLAPSE 11/13/2018 JOCELINE ALBA DO Ot 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.8 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 08/18/2019 MADISON JACOBP Ot V76.1 2 OTH SCREEN MAMMO-MALIGN NEOPLASM OF [place] 08/18/2019 JOCELINE ALBA DO Ot 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 08/18/2019 MADISON JACOB HIGH PRESSURE FIRER Ot V76.1 2 OTH SCREEN MAMMO-MALIGN NEOPLASM OF [place] 08/18/2019 JOCELINE ALBA DO Ot 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 08/20/2019 MADISON JACOB HIGH PRESSURE FIRER Ot V76.1 2 OTH SCREEN MAMMO-MALIGN NEOPLASM OF [place] 08/20/2019 JOCELINE ALBA DO Ot 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 Results Test Result Range Methicillin resistant Staphylococcus aur eus (MRSA) screening culture - 10/13/18 06:20 Methicillin resistant Staphylococcus aureus (MRSA) scr eening culture NEG NRG Complete blood count (CBC) with automate d white blood cell (WBC) differential - 10/13/18 06:25 Blood leukocytes automated count (number/volume) 7.4 10*3/uL 4.3-11.0 Blood erythrocytes automated count (number/volume) 4.48 10*6/uL 4.35-5.85 Venous blood hemoglobin measurement (mass/volume) 14.0 g/dL 11.5-16.0 Blood hematocrit (volume fraction) 41 % 35-52 Automated erythrocyte mean corpuscular volume 91 [ foz_us] 80-99 Automated erythrocyte mean corpuscular h emoglobin (mass per erythrocyte) 31 pg 25-34 Automated erythrocyte mean corpuscular h emoglobin concentration measurement (mass/volume) 35 g/dL 32-36 Automated erythrocyte distribution width ratio 13. 5 % 10.0- 14.5 Automated blood platelet count (count/volume) 205 10*3/uL 130-400 Automated blood platelet mean volume measurement 10.1 [foz_us] 7.4-10.4 Automated blood neutrophils/100 leukocytes 56 % 42-75 Automated blood lymphocytes/100 leukocytes 31 % 12-44 Blood monocytes/100 leukocytes 9 % 0-12 Automated blood eosinophils/100 leukocytes 4 % 0-10 Automated blood basophils/100 leukocytes 1 % 0-10 Blood neutrophils automated count (number/volume) 4.1 10*3 1.8-7.8 Blood lymphocytes automated count (number/volume) 2.3 10*3 1.0-4.0 Blood monocytes automated count (number/volume) 0. 7 10*3 0.0-1.0 Automated eosinophil count 0.3 10*3/uL 0 .0-0.3 Automated blood basophil count (count/volume) 0.0 10*3/uL 0.0-0.1 Blood type T Indirect antibody screen pa karma - 10/13/18 06:25 ABO+Rh group AP NRG Transfusion band number [id number] Blood group antibody screen NEGATIVE NR G Complete urinalysis with reflex to cultu re - 10/13/18 07:37 Urine color determination YELLOW NRG Urine clarity determination CLEAR NR G Urine pH measurement by test strip 6.5 5-9 Specific gravity of urine by test strip 1.010 1.016-1.022 Urine protein assay by test strip, semi-quantitative NEGATIVE NEGATIVE Urine glucose detection by automated test strip NE GATIVE NEGATIVE Erythrocytes detection in urine sediment by light micr oscopy NEGATIVE NEGATIVE Urine ketones detection by automated test strip NE GATIVE NEGATIVE Urine nitrite detection by test strip NEGATIVE NEGATIVE Urine total bilirubin detection by test strip NEGA TIVE NEGATIVE Urine urobilinogen measurement by automated test strip (mass/volume) NORMAL NORMAL Urine leukocyte esterase detection by dipstick NEG ATIVE NEGATIVE Automated urine sediment erythrocyte cou nt by microscopy (number/high power field) NONE NRG Automated urine sediment leukocyte count by microscopy (number/high power field) RARE NRG Bacteria detection in urine sediment by light microsco py NEGATIVE NRG Squamous epithelial cells detection in u rine sediment by light microscopy 5-10 NRG Crystals detection in urine sediment by light microsco py NONE NRG Casts detection in urine sediment by light microscopy NONE NRG Mucus detection in urine sediment by light microscopy NEGATIVE NRG Complete urinalysis with reflex to culture NO NRG Encounters ACCT No. Visit Date/Time Discharge Status Pt. Type Provider Facility Loc./Unit Complaint [id number] 09/15/2019 06:03:00 12:10:00 DIS Outpatient MACEY WARD MD [facility] PREOP FOREIGN BODY BLADDER [id number] 08/20/2019 09:19:00 23:59:59 CLS Outpatient MACEY WARD MD [facility] RAD HEMATURIA [id number] 10/22/2018 15:34:00 23:59:59 CLS Outpatient JOCELINE ALBA DO [facility] RAD PAIN OF RIGHT CALF [id number] 10/13/2018 05:59:00 10:05:00 DIS Outpatient JOCELINE ALBA DO [facility] SDC GENITAL PROLAPSE;CYSTOCELE;RECTOCELE [id number] 10/09/2018 08:17:00 09:09:00 DIS Outpatient JOCELINE ALBA DO [facility] PREOP A P REPAIR, SOLYX SLING [id number] 09/08/2018 05:46:00 16:41:00 DIS Outpatient JOCELINE ALBA DO [facility] PREOP A P REPAIRS; SLING WITH CYSTO [id number] 04/06/2014 07:17:00 014 23:59:59 CLS Outpatient MADISON JACOB [facility] RAD SCREENING [id number] 03/31/2013 08:37:00 013 23:59:59 CLS Outpatient MADISON JACOB [facility] RAD SCREENING [id number] 09/17/2019 08:00:00 P EN Preadmit SYLVIA NORRIS, MACEY Hoover [facility] SDC FOREIGN BODY BLADDER
[2019-09-17] MEDS ORDERED: cefTRIAXone FOR IV USE 1,000 MG in WATER (STERILE) FOR INJECTION 10 ML IV ONE (06:45)
--- NOTE | 2019-09-17 06:57 | Progress Note-Pre Operative ---
Pre-Operative Progress Note H&P Reviewed The H&P was reviewed, patient examined and no changes noted. Date Seen by Provider: September 17, 2019 Time Seen by Provider: 06:56 Date H&P Reviewed: September 17, 2019 Time H&P Reviewed: 06:56 Pre-Operative Diagnosis: MACEY PIERRE MD September 17, 2019 06:57
--- NOTE | 2019-09-17 06:58 | Progress Note-Post Operative ---
Post-Operative Progess Note Surgeon (s)/General Surgery Physician Assistant (s) Surgeon MACEY WARD MD General Surgery Physician Assistant: NONE Pre-Operative Diagnosis F.B BLADDER Post-Operative Diagnosis SAME Procedure & Operative Findings Date of Procedure 09/17/19 Procedure Performed/Findings CYSTOSCOPY AND REMOVAL OF F.B Anesthesia Type GENERAL Estimated Blood Loss Estimated blood loss (mL): NONE Specimens/Packing Specimens Removed NONE Packing: NONE MACEY WARD MD September 17, 2019 06:58
--- NOTE | 2019-09-17 07:00 | Discharge Inst-Urology ---
Discharge Inst-Urology Reconcile Patient Problems Problems Reviewed?: Yes Final Diagnosis F.B BLADDER Patient Instructions/Follow Up Plan/Assessment/Instructions Discharge with [place] and leg bag day time and large bag night time with instructions. Patient to come to office Friday 9am to ANALISA Lrasen Please make appointment to see me in office in 2 weeks. Increase oral fluids for 48 hours and then as needed. Diet and Activity as tolerated. If questions or concerns contact your physician Or seek help at emergency department. MACEY WARD MD September 17, 2019 07:00
[2019-09-17] MEDS: LACTATED RINGERS 1,000 ML IV PRN ×2 (07:01→08:10)
[2019-09-17] MEDS ORDERED: LIDOCAINE PF 2% 5 ML (XYLOCAINE) VIAL ONE (07:08)
[2019-09-17] MEDS ORDERED: proPOfol 200 MG/20 ML (DIPRIVAN) VIAL IV ONE (07:08)
[2019-09-17] MEDS ORDERED: fentaNYL INJECTION 100 MCG/2 ML AMP ONE (07:08)
[2019-09-17] MEDS ORDERED: SEVOFLURANE (ULTANE) 15 ML INHAL SOLN ONE ×2 (07:08→08:03)
[2019-09-17] MEDS ORDERED: MIDAZOLAM 2 MG/2 ML (VERSED) VIAL ONE (07:08)
[2019-09-17] MEDS ORDERED: CATHETER FLUSH 10 ML SYR IV PRN (07:15)
[2019-09-17] MEDS ORDERED: ROCURONIUM 10 MG/ML 5 ML SYRINGE IV ONE (07:40)
[2019-09-17] MEDS ORDERED: GLYCOPYRROLATE 0.2 MG/ML (ROBINUL) 2 ML VIAL ONE (08:05)
[2019-09-17] MEDS ORDERED: NEOSTIGMINE 3 MG/3 ML VIAL ONE (08:05)
[2019-09-17] MEDS ORDERED: morphine INJ 10 MG/ML 1ML (SYR OR VIAL) IVP ONE (08:30)
[2019-09-17] MEDS ORDERED: ONDANSETRON 4 MG/2 ML (SDV) Z0FRAN IVP PRN (08:30)
--- NOTE | 2019-09-17 08:41 | Anesthesia-General Post-Op ---
General Patient Condition Mental Status/LOC: Same as Preop Cardiovascular: Satisfactory Nausea/Vomiting: Absent Respiratory: Satisfactory Pain: Controlled Complications: Absent Post Op Complications Complications None Follow Up Care/Instructions Patient Instructions None needed. Anesthesia/Patient Condition Patient Condition Patient is doing well, no complaints, stable vital signs, no apparent adverse anesthesia problems. No complications reported per nursing. MUMTAZ LOVING CRNA September 17, 2019 08:41
[2019-09-17] MEDS ORDERED: NITR-65 PO (09:25)
[2019-09-17] MEDS ORDERED: PHEN-640 PO (09:25)
--- NOTE | 2019-09-17 10:45 | NUR ---
PRESCRIPTIONS CALLED INTO [facility] PER PT REQUEST AT THIS TIME.
--- NOTE | 2019-09-17 14:50 | OPERATIVE REPORT ---
DATE OF SERVICE: 09/17/2019 PREOPERATIVE DIAGNOSIS: Foreign body, bladder. POSTOPERATIVE DIAGNOSIS: Foreign body, bladder. OPERATION PERFORMED: Cystoscopy and removal of foreign body. SURGEON: Dillon Ward MD ANESTHESIA: General. COMPLICATIONS: None. DESCRIPTION OF PROCEDURE: Under satisfactory general anesthesia, the patient in lithotomy position, genitalia were prepped and draped in the usual sterile fashion. A 23-Canadian cystoscope was introduced in the bladder. Again, visualized the sling mesh protruding from the left bladder wall just proximal to the bladder neck and exiting under it. I went ahead and it was quite away from the ureteral orifices. I went ahead and cut it flush to the bladder as much as I could with the endoscopic scissors. The sling being kind of cough and then I grasped it with a grasping forceps and removed it completely. I looked again and irrigated the bladder. There was no further sling tissue visualized at all. There was some mild oozing. I elected to leave a catheter for proper healing and we will remove it on Friday at the office. The patient tolerated the procedure and anesthesia well and was sent to recovery room in stable condition. ESTIMATED BLOOD LOSS: Negligible. Job ID: [id number] DocumentID: [id number] Dictated Date: 09/17/2019 08:28:22 Hand Picker Date: 09/17/2019 14:49:53 Dictated By: DILLON WARD MD
== END 2019-09-17 10:35 | disposition home or self-care (01) ==
LOC: SDC 06:29
PROVIDERS: ATTEND Urology
DX: T19.1XXA Foreign body in bladder, initial encounter (principal); T83.198A Other mechanical complication of other urinary devices and implants, initial encounter; E78.5 Hyperlipidemia, unspecified; E66.9 Obesity, unspecified; J30.9 Allergic rhinitis, unspecified; Z68.32 Body mass index [BMI] 32.0-32.9, adult; Z90.710 Acquired absence of both cervix and uterus; Z79.899 Other long term (current) drug therapy
CPT/HCPCS: 87081